=== PATIENT | female | born 1980 | race Caucasian/White ===

== ENCOUNTER 2024-01-25 19:10 | Inpatient (IN) ==
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
[2024-01-25] MEDS: OPTIRAY 320 125ml IV ONE (20:01)
[2024-01-25 20:02] LABS: Hematocrit (blood only) 35.9 % (37.0-47.0); Hemoglobin 10.4 g/dl (12.0-16.0); Mean Corpuscular Hemoglobin 20.2 pg (25.0-34.0); Mean Corpuscular Volume 69.8 fL (80.0-100.0); Mean Platelet Volume 10.9 fL (9.4-12.4); Platelet Count 372 K/uL (130-400); RDW Coefficient of Variation 17.7 % (11.5-14.5); RDW Standard Deviation 42.8 fL (36.4-46.3); Red Blood Count 5.14 M/uL (4.20-5.40); White Blood Count 9.43 K/ul (4.8-10.8)
[2024-01-25 20:03] LABS: iSTAT Creatinine 0.8 mg/dl (0.6-1.3); iSTAT Hemoglobin 11.2 g/dl (12.0-16.0); iSTAT Ionized Calcium 1.12 mmol/l (1.12-1.32); iSTAT Potassium 3.7 mmol/L (3.3-5.0)
[2024-01-25 20:20] LABS: Albumin Globulin Ratio 1.6 (0.9-2); BUN Creatinine Ratio 8.2 (10-20); Calcium 9.9 mg/dl (8.6-10.3); Creatinine Clr Calc Pharmacy 86.2 ml/min; Est GFR (African American) 118.6 ml/min; Est GFR (Non-African American) 102.3 ml/min; Globulin 3.2 gm/dl (2.5-4.0); Potassium 3.1 mmol/L (3.5-5.1); Total Protein 8.2 gm/dl (6.0-8.3)
--- NOTE | 2024-01-25 20:27 | CT Scan Report ---
Exam(s): CT HEAD Without Contrast EXAM: CT Head Without Intravenous Contrast CLINICAL HISTORY: Reason for exam: Neuro deficit, acute, stroke suspected. TECHNIQUE: Axial computed tomography images of the head/brain without intravenous contrast. CTDI is 29 mGy and DLP is 448 mGy-cm. Automated exposure control was utilized for the study. A dose lowering technique was utilized adhering to the principles of ALARA. COMPARISON: None. FINDINGS: Brain: No mass effect or acute infarct. No acute hemorrhage. No abnormal density in the brain parenchyma. Ventricles: No hydrocephalus or midline shift. Bones/joints: No skull fracture. Soft tissues: No scalp hematoma. Visualized Sinuses: Clear. Mastoid air cells: No mastoid effusion. IMPRESSION: 1. No acute intracranial abnormality. Communications: Call Doctor Stroke Electronically signed by: Inga Espitia M.D. 01/25/24 20:26 PM
--- NOTE | 2024-01-25 20:27 | CT Scan Report ---
Exam(s): CTA HEAD With Contrast IV Amt: 115 ml optiray 320 EXAM: CT Angiography Head With Intravenous Contrast CLINICAL HISTORY: Reason for exam: cva symptoms. TECHNIQUE: Axial computed tomographic angiography images of the head with intravenous contrast. CTDI is 29 mGy and DLP is 448 mGy-cm. Automated exposure control was utilized for the study. A dose lowering technique was utilized adhering to the principles of ALARA. MIP reconstructed images were created and reviewed. Venous contamination limits detail for subtle abnormalities. CONTRAST: Patient received 115 ml optiray 320 of IV contrast COMPARISON: Head CT done earlier. FINDINGS: Right internal carotid artery: Patent. Right anterior cerebral artery: Patent. Right middle cerebral artery: Patent. Right posterior cerebral artery: Patent. Right vertebral artery: Patent. Very slight right dominant system. Left internal carotid artery: Patent. Left anterior cerebral artery: Patent. Left middle cerebral artery: Patent. Left posterior cerebral artery: Patent. Left vertebral artery: Patent. Basilar artery: Patent. Other: No aneurysm or large vessel occlusion. Patent dural venous sinuses. IMPRESSION: 1. No aneurysm or large vessel occlusion. Communications: Call Doctor Stroke Electronically signed by: Inga Espitia M.D. 01/25/24 20:26 PM
--- NOTE | 2024-01-25 20:28 | CT Scan Report ---
Exam(s): CTA NECK With Contrast IV Amt: 115 ml optiray 320 EXAM: CT Angiography Neck With Intravenous Contrast CLINICAL HISTORY: Reason for exam: cva symptoms. TECHNIQUE: Routine carotid CT angiography protocol was performed with intravenous contrast. NASCET criteria using the distal ICAs for comparison were used for evaluation of stenoses. CTDI is 29 mGy and DLP is 448 mGy-cm. Automated exposure control was utilized for the study. A dose lowering technique was utilized adhering to the principles of ALARA. MIP reconstructed images were created and reviewed. CONTRAST: Patient received 115 ml optiray 320 of IV contrast COMPARISON: None. FINDINGS: Right common carotid artery: Patent. Right internal carotid artery: Patent. Right vertebral artery: Patent. Slight right dominant vertebral system. Left common carotid artery: Patent. Left internal carotid artery: Patent. Left vertebral artery: Patent. Other: No atherosclerosis or significant stenosis. IMPRESSION: 1. No dissection, occlusion, or significant stenosis. CAROTID STENOSIS REFERENCE USING NASCET CRITERIA: % ICA stenosis = (1 - narrowest ICA diameter/diameter of distal cervical ICA) x 100. Mild - <50% stenosis. Moderate - 50-69% stenosis. Severe - 70-94% stenosis. Near occlusion - 95-99% stenosis. Occluded - 100% stenosis. Communications: Call Doctor Stroke Electronically signed by: Inga Espitia M.D. 01/25/24 20:27 PM
[2024-01-25 21:08] LABS: Acetaminophen 4 ug/ml (10-30); Salicylate < 3.0 mg/dl (3.0-30)
[2024-01-25 21:45] LABS: INR 1.1 (0.9-1.1); Partial Thromboplastin Ratio 0.9; Partial Thromboplastin Time 23 Seconds (21-31); Prothrombin Time 11.8 Seconds (9.0-12.0)
[2024-01-25 23:46] LABS: Appearance Urine Clear (Clear); Bacteria Urine Automated None Seen (None Seen); Bilirubin Urine Negative (Negative); Blood Urine Negative (Negative); Cast Urine Automated 0-2 /lpf (0-2); Color Urine Yellow; Epithelial Cell Urine Auto 0-2 /hpf (0-2); Glucose Urine UA Negative (Negative); Ketones Urine Trace (Negative); Leukocyte Esterase Urine 1+ (Negative); Nitrite Urine Negative (Negative); Protein Urine Negative (Negative); RBC Urine Automated 0-2 /hpf (0-2); Specific Gravity Urine 1.037 (1.000-1.030); Urobilinogen Urine Negative (Negative); WBC Urine Automated 0-5 /hpf (0-5); pH Urine 6.5 (4.5-7.5)
[2024-01-26 00:42] LABS: Amphetamines+Metham, Urine Neg (Neg); Barbiturates, Urine Neg (Neg); Benzodiazepine, Urine Neg (Neg); Cocaine, Urine Neg (Neg); Fentanyl, Urine Neg (Neg); MDMA (Ecstacy), Urine Pos (Neg); Marijuana, Urine Neg (Neg); Methadone, Urine Neg (Neg); Opiate, Urine Neg (Neg); Phencyclidine, Urine Neg (Neg)
[2024-01-26] MEDS: buPROPion XL 300 MG TABCR PO SCH (02:19)
[2024-01-26] MEDS: PROPRANOLOL HCL 20 MG TAB PO PRN (02:19)
[2024-01-26] MEDS: CITALOPRAM 40 MG TAB PO SCH ×2 (02:19→21:16)
--- NOTE | 2024-01-26 02:34 | Emergency Department Note ---
ED Visit Note I assumed care at the change of shift. The patient was felt medically clear. She was a voluntary psychiatric admission for delusions/hallucinations. The patient was seen by our psychiatry services, [facility] S. Patient has been accepted onto their floor. .
[2024-01-26 06:04] LABS: Pregnancy Test, Urine Negative (Negative)
--- NOTE | 2024-01-26 07:05 | XRay Report ---
XR chest 1V portable HISTORY: 43 years-old Female stroke alert acute strokelike symptoms COMPARISON: None TECHNIQUE: AP view of the chest FINDINGS: Cardiomediastinal and hilar silhouettes are within normal limits. There is no pneumothorax, pleural e ffusion or airspace consolidation. The bones appear grossly intact. IMPRESSION: No acute process. ACT 112: Negative or not required by law. The above report was generated using voice recognition software. It may contain grammatical, syntax o r spelling errors. Electronically signed by: Hoang Landin M.D. 01/26/2024 7:04 AM
[2024-01-26] MEDS ORDERED: hydrOXYzine HCl 25 MG TAB PO PRN (07:16)
[2024-01-26] MEDS ORDERED: ALUMINUM/MAGNESIUM SUSP 30 ML UDC PO PRN (07:16)
[2024-01-26] MEDS ORDERED: BISMUTH SUBSALICYLATE LIQD 236 ML PO PRN (07:16)
[2024-01-26] MEDS ORDERED: SODIUM CHLORIDE 0.65% NA SOLN 45 ML (OCEAN) PRN (07:16)
[2024-01-26] MEDS ORDERED: MAGNESIUM HYDROXIDE SUSP 30 ML UDC PO PRN (07:16)
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
[2024-01-26] MEDS: OLANZapine 5 MG TABLET PO PRN (09:50)
[2024-01-26] MEDS: amLODIPine BESYLATE 5 MG TAB PO SCH (10:40)
[2024-01-26] MEDS: PANTOprazole 40 MG TAB PO SCH (10:40)
--- NOTE | 2024-01-26 19:42 | Electrocardiogram Report ---
Test Reason : Blood Pressure : / mmHG Vent. Rate : 068 BPM Atrial Rate : 068 BPM P-R Int : 170 ms QRS Dur : 102 ms QT Int : 406 ms P-R-T Axes : 032 023 013 degrees QTc Int : 431 ms Normal sinus rhythm Incomplete right bundle branch block Borderline ECG No previous ECGs available Confirmed by Kiko Aldana ([id number]) on 01/26/2024 7:42:41 PM Referred By: REFERRED SELF Confirmed By:Kiko Aldana
[2024-01-26] MEDS: traZODone HCL 50 MG TAB PO PRN (21:15)
[2024-01-26] MEDS: OLANZapine 10 MG TAB PO SCH (21:16)
[2024-01-27 08:26] LABS: Estimated Average Glucose 120 mg/dl; Hemoglobin A1C 5.8 % (4.5-5.6)
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
[2024-01-27] MEDS: MONTELUKAST SODIUM 10 MG TABLET PO SCH (09:32)
[2024-01-27] MEDS: FLUTICASONE PROPIONATE NA SPR 16 GM BTL SCH (09:36)
[2024-01-27] MEDS: OLANZAPINE 2.5 MG TAB PO SCH (21:45)
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
[2024-01-28] MEDS: hydrOXYzine HCl 25 MG TAB PO PRN (10:42)
[2024-01-28] MEDS: ACETAMINOPHEN 325 MG TAB PO PRN (15:13)
[2024-01-28] MEDS: cloNIDine HCL 0.1 MG TAB PO SCH (21:26)
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
[2024-01-30 08:16] LABS: BUN Creatinine Ratio 20.5 (10-20); Calcium 9.4 mg/dl (8.6-10.3); Creatinine Clr Calc Pharmacy 84.7 ml/min; Est GFR (African American) 118.6 ml/min; Est GFR (Non-African American) 102.3 ml/min; Potassium 4.6 mmol/L (3.5-5.1)
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
[2024-01-30 15:47] LABS: MDA negative; MDEA negative; MDMA (Ecstasy) Urine, Confirm negative
[2024-01-30] MEDS: OLANZapine 10 MG TAB PO SCH (21:24)
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
[2024-01-31] MEDS: OLANZapine 10 MG TAB PO SCH (18:46)
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
[2024-02-01] MEDS: OLANZAPINE 2.5 MG TAB PO SCH (19:11)
[2024-02-01] MEDS: ARTIFICIAL TEARS OPB PRN (19:11)
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
== END 2024-02-02 10:40 | disposition home or self-care (01) | DRG 882 ==
LOC: ED 19:10 → 3S 01-26 07:16